=== PATIENT | male | born 1960 | race Caucasian/White ===

== ENCOUNTER 2018-12-16 21:11 | Emergency (ER) | payer BC ==
[~2018-12-16] VITALS: Ht 195.6 cm; Wt 129.3 kg
[2018-12-16] MEDS ORDERED: CELE200 PO (21:44)
[2018-12-16] MEDS ORDERED: CLARITIN10 MG PO (21:45)
[2018-12-16] MEDS ORDERED: [UNRECOGNIZED DRUG - OTHER] PO (21:47)
[2018-12-16] MEDS ORDERED: HYDHCL25 PO (21:56)
== END 2018-12-16 22:09 | disposition home or self-care (01) ==
LOC: ER 21:11
DX: S50.862A Insect bite (nonvenomous) of left forearm, initial encounter (principal); S50.861A Insect bite (nonvenomous) of right forearm, initial encounter; S80.862A Insect bite (nonvenomous), left lower leg, initial encounter; S80.861A Insect bite (nonvenomous), right lower leg, initial encounter; W57.XXXA Bitten or stung by nonvenomous insect and other nonvenomous arthropods, initial encounter; Z79.899 Other long term (current) drug therapy
CPT/HCPCS: 99282